=== PATIENT | male | born 1950 | race American Indian/Alaskan Native ===

== ENCOUNTER 2021-09-12 14:08 | Outpatient (CLI) | payer MEDICARE | END 2021-09-12 14:09 | disposition home or self-care (01) | LOC: CSHRAD 14:08 | PROVIDERS: ATTEND Family Medicine | DX: R05.3 Chronic cough (principal) | CPT/HCPCS: 71046 ==

== ENCOUNTER 2022-05-30 15:46 | Outpatient (CLI) | payer MEDICARE ==
[2022-05-30 16:29] LABS: Mean Corpuscular HGB CONC 33.9 g/dL (32.0-36.0); Mean Corpuscular Hemoglobin 32.1 pg (27.0-33.0); Mean Corpuscular Volume 94.7 fl (81.2-95.1); Mean Platelet Volume 11.7 fl (7.4-10.4); Platelet Count 230 10x3/uL (150-450); RBC Distribution Width 13.5 % (11.5-14.5); Red Blood Cell (RBC) Count 3.74 10x6/uL (4.32-5.72); White Blood Cell (WBC) Count 6.3 10x3/uL (3.5-10.5)
[2022-05-30 16:48] LABS: PTT 25.9 sec (22.0-33.0); Prothrombin Time 11.1 sec (9.5-12.1)
[2022-05-30 16:52] LABS: Anion Gap 15 mmol/L (10-20); BUN (Urea Nitrogen) 28 mg/dL (8.4-25.7); Calc. Creatinine Clearance 0 mL/min (70-130); Calcium 10.1 mg/dL (7.8-10.44); Carbon Dioxide 21 mmol/L (23-31); Chloride 108 mmol/L (98-107); Estimated GFR 34; Glucose 151 mg/dL (83-110); Potassium 4.9 mmol/L (3.5-5.1); Sodium 139 mmol/L (136-145)
== END 2022-05-30 15:47 | disposition home or self-care (01) ==
LOC: CSHLAB 15:46
PROVIDERS: ATTEND Specialist
DX: Z01.818 Encounter for other preprocedural examination (principal); Z20.822 Contact with and (suspected) exposure to COVID-19
CPT/HCPCS: 80048; 85027; 85610; 85730; 87811

== ENCOUNTER 2022-06-04 06:17 | Observation (INO) | payer MEDICARE ==
[2022-06-04] MEDS ORDERED: Acetylcysteine 800 MG/4 ML VIAL ONE (06:54)
[2022-06-04 07:15] VITALS: TEMP 97
[2022-06-04] MEDS ORDERED: Nitroglycerin 50 MG/250 ML BOT 250 ML ONE (07:23)
[2022-06-04] MEDS ORDERED: Heparin 10,000 UNITS/ 10 ML VIAL ONE (07:24)
[2022-06-04] MEDS ORDERED: Lidocaine 1% 20 ML MDV ONE (07:34)
[2022-06-04] MEDS ORDERED: Verapamil 5 MG/2 ML VIAL ONE (07:35)
[2022-06-04] MEDS ORDERED: Adenosine 6 MG/2 ML VIAL ONE (07:35)
[2022-06-04] MEDS ORDERED: Bivalirudin 250 MG VIAL ONE (07:36)
[2022-06-04] MEDS ORDERED: Fentanyl 100 MCG/2 ML VIAL ONE (08:51)
[2022-06-04] MEDS ORDERED: Midazolam HCl 2 mg/2 ml Vial ONE (08:51)
[2022-06-04] MEDS ORDERED: diphenhydrAMINE 50 MG/ML VIAL ONE (09:08)
[2022-06-04] MEDS ORDERED: Calcium Carbonate 500 MG ChewTAB PO PRN (10:18)
[2022-06-04] MEDS ORDERED: Ondansetron ODT 4 MG TAB PO PRN (10:18)
[2022-06-04] MEDS ORDERED: Senokot S 8.6-50 MG TAB PO PRN (10:18)
[2022-06-04] MEDS ORDERED: Loperamide HCl 2 MG CAP PO PRN (10:18)
[2022-06-04] MEDS ORDERED: HYDROcodone/Acetaminophen 7.5/325 mg Tablet PO PRN (10:18)
[2022-06-04] MEDS ORDERED: Acetaminophen 325 MG TAB PO PRN (10:18)
[2022-06-04] MEDS ORDERED: HYDROcodone/Acetaminophen 5/325 mg Tablet PO PRN (10:18)
[2022-06-04] MEDS ORDERED: Nitroglycerin 0.4 MG TAB (25 Tab Bottle) SL PRN (10:23)
[2022-06-04] MEDS ORDERED: Sodium Chloride 0.9% 200 ML IV PRN (10:23)
[2022-06-04] MEDS ORDERED: Acetaminophen/Codeine 30-300mg Tablet PO PRN ×2 (10:23)
[2022-06-04] MEDS ORDERED: Sodium Chloride 0.9% 1,000 ML IV SCH (10:30)
[2022-06-04] MEDS ORDERED: Atropine Sulfate 0.4 mg/1 ml Vial ONE (11:45)
[2022-06-04] MEDS ORDERED: Ondansetron PF 4 MG/2 ML Vial ONE (11:45)
[2022-06-04] MEDS ORDERED: Iopamidol 300 61% 100 ML VIAL FS ONE (13:47)
[2022-06-04 14:13] VITALS: BMI 24.2
[2022-06-04 15:24] VITALS: BP 126/63
== END 2022-06-04 18:28 | disposition home or self-care (01) ==
LOC: CSHCCL 06:17 → CSHTELE 10:52
PROVIDERS: ADMIT Specialist; ATTEND Specialist
PROC: 4A023N7 Measurement of Cardiac Sampling and Pressure, Left Heart, Percutaneous Approach (ICD-10-PCS; principal; 2022-06-04)
PROC: B201YZZ Plain Radiography of Multiple Coronary Arteries using Other Contrast (ICD-10-PCS; 2022-06-04)
DX: I25.10 Atherosclerotic heart disease of native coronary artery without angina pectoris (principal); I25.82 Chronic total occlusion of coronary artery; I65.23 Occlusion and stenosis of bilateral carotid arteries; I10 Essential (primary) hypertension; E78.2 Mixed hyperlipidemia; I70.202 Unspecified atherosclerosis of native arteries of extremities, left leg; E11.9 Type 2 diabetes mellitus without complications; Z79.82 Long term (current) use of aspirin; Z79.899 Other long term (current) drug therapy; Z88.0 Allergy status to penicillin; Z88.5 Allergy status to narcotic agent
CPT/HCPCS: 85347 ×2; 92920; 93459; C1769; C1874; C1887; C1894; C9600; 92928; 99152; 99153; J0153; J0461; J0583; J1200; J1644; J2250; J2405; J3010; J7050; Q9967

== ENCOUNTER 2023-01-22 10:09 | Outpatient (CLI) | payer OTHER ==
[2023-01-22 11:02] LABS: Hemoglobin 12.7 g/dL (13.5-17.5); Mean Corpuscular HGB CONC 33.8 g/dL (32.0-36.0); Mean Corpuscular Volume 97.7 fl (81.2-95.1); Mean Platelet Volume 11.5 fl (7.4-10.4); Platelet Count 213 10x3/uL (150-450); RBC Distribution Width 12.5 % (11.5-14.5); Red Blood Cell (RBC) Count 3.85 10x6/uL (4.32-5.72); White Blood Cell (WBC) Count 4.7 10x3/uL (3.5-10.5)
[2023-01-22 11:09] LABS: Anion Gap 15 mmol/L (10-20); BUN (Urea Nitrogen) 25 mg/dL (8.4-25.7); Calc. Creatinine Clearance 0 mL/min (70-130); Carbon Dioxide 24 mmol/L (23-31); Chloride 107 mmol/L (98-107); Estimated GFR 44; Glucose 150 mg/dL (83-110); Potassium 4.5 mmol/L (3.5-5.1); Sodium 141 mmol/L (136-145)
[2023-01-22 11:10] LABS: PTT 26.2 sec (22.0-33.0)
== END 2023-01-22 10:10 | disposition home or self-care (01) ==
LOC: CSHLAB 10:09
PROVIDERS: ATTEND Specialist
DX: Z01.818 Encounter for other preprocedural examination (principal)
CPT/HCPCS: 80048; 85027; 85610; 85730; 93005; 93010

== ENCOUNTER 2023-01-23 08:30 | Day surgery (SDC) | payer OTHER ==
[~2023-01-23 08:30] MED LIST: Adenosine 6 MG/2 ML VIAL ONE; Heparin 10,000 UNITS/ 10 ML VIAL ONE; Lidocaine 1% (PF) 30 ML VIAL ONE; Lidocaine 1% MPF 2 ML VIAL ONE; Nitroglycerin 50 MG/250 ML BOT 0 ML ONE; Sodium Chloride 0.9% 1,000 ML ONE; Verapamil 5 MG/2 ML VIAL ONE
[2023-01-23] MEDS ORDERED: Acetylcysteine 800 MG/4 ML VIAL ONE (08:49)
[2023-01-23 09:11] VITALS: BP 135/66; TEMP 97.8
[2023-01-23] MEDS ORDERED: Fentanyl 100 MCG/2 ML VIAL ONE ×2 (09:53→12:47)
[2023-01-23] MEDS ORDERED: Midazolam HCl 2 mg/2 ml Vial ONE (09:54)
[2023-01-23] MEDS ORDERED: Iopamidol 300 61% 100 ML VIAL FS ONE (10:24)
[2023-01-23] MEDS ORDERED: Heparin 10,000 UNITS/ 10 ML VIAL ONE (10:27)
[2023-01-23] MEDS ORDERED: Atropine Sulfate 0.4 mg/1 ml Vial ONE (12:51)
[2023-01-23] MEDS ORDERED: Ondansetron PF 4 MG/2 ML Vial ONE (12:53)
[2023-01-23] MEDS ORDERED: Phenylephrine 40 MG/NS 250 ML 0 ML ONE (13:05)
[2023-01-23] MEDS ORDERED: PHENYLEPHRINE-NS 100 MCG/ML 10 ML SYRINGE ONE (13:06)
== END 2023-01-23 18:50 | disposition home or self-care (01) ==
LOC: CSHSDC 08:30
PROVIDERS: ATTEND Specialist
DX: R06.02 Shortness of breath (principal); I25.110 Atherosclerotic heart disease of native coronary artery with unstable angina pectoris; R94.39 Abnormal result of other cardiovascular function study; Z95.5 Presence of coronary angioplasty implant and graft
CPT/HCPCS: 85347 ×2; 92920; 93459; C1725; C1760; C1769; C1874; C1876; C1887 ×4; C1894; C9604; 92937; 99152; 99153; J0153; J0461; J1644; J2001; J2250; J2405; J3010; J7050; Q9967

== ENCOUNTER 2023-02-10 18:08 | Emergency (ER) | payer OTHER ==
[2023-02-10 19:05] LABS: #Monocytes 1.1 10x3/uL (0.0-1.1); #Neutrophils 6.9 10x3/uL (1.5-8.4); %Basophils 0.1 % (0.0-2.0); %Eosinophils 0.4 % (0.0-6.0); %Lymphocytes 13.9 % (18.0-47.0); %Monocytes 11.2 % (0.0-10.0); %Neutrophils 74.1 % (40.0-75.0); Hemoglobin 11.9 g/dL (13.5-17.5); Mean Corpuscular HGB CONC 34.3 g/dL (32.0-36.0); Mean Corpuscular Hemoglobin 32.7 pg (27.0-33.0); Mean Corpuscular Volume 95.3 fl (81.2-95.1); Mean Platelet Volume 11.4 fl (7.4-10.4); Platelet Count 216 10x3/uL (150-450); RBC Distribution Width 12.5 % (11.5-14.5); Red Blood Cell (RBC) Count 3.64 10x6/uL (4.32-5.72); White Blood Cell (WBC) Count 9.4 10x3/uL (3.5-10.5)
[2023-02-10 19:23] LABS: ALT (SGPT) 18 U/L (8-55); AST (SGOT) 26 U/L (5-34); Albumin 4.5 g/dL (3.4-4.8); Alkaline Phosphatase 53 U/L (40-110); Anion Gap 16 mmol/L (10-20); BUN (Urea Nitrogen) 16 mg/dL (8.4-25.7); Bilirubin, Total 0.4 mg/dL (0.2-1.2); Calc. Creatinine Clearance 0 mL/min (70-130); Calcium 9.6 mg/dL (7.8-10.44); Carbon Dioxide 21 mmol/L (23-31); Chloride 102 mmol/L (98-107); Estimated GFR 49; Globulin 3.3 g/dL (2.4-3.5); Glucose 139 mg/dL (83-110); Potassium 4.4 mmol/L (3.5-5.1); Protein, Total 7.8 g/dL (5.8-8.1); Sodium 135 mmol/L (136-145)
== END 2023-02-10 20:37 | disposition home or self-care (01) ==
LOC: CSHERS 18:08
DX: U07.1 COVID-19 (principal); E11.9 Type 2 diabetes mellitus without complications; I10 Essential (primary) hypertension
CPT/HCPCS: 71045; 80053; 83605; 84484; 85025; 93005

== ENCOUNTER 2023-05-24 17:45 | Observation (INO) | payer OTHER ==
[2023-05-24 18:35] LABS: #Eosinphils 0.1 10x3/uL (0.0-0.5); #Monocytes 0.8 10x3/uL (0.0-1.1); #Neutrophils 3.1 10x3/uL (1.5-8.4); %Basophils 0.3 % (0.0-2.0); %Eosinophils 1.5 % (0.0-6.0); %Lymphocytes 37.6 % (18.0-47.0); %Monocytes 12.1 % (0.0-10.0); %Neutrophils 48.2 % (40.0-75.0); Hematocrit 35.9 % (38.8-50.0); Hemoglobin 12.2 g/dL (13.5-17.5); Mean Corpuscular Hemoglobin 32.4 pg (27.0-33.0); Mean Corpuscular Volume 95.5 fl (81.2-95.1); Mean Platelet Volume 11.6 fl (7.4-10.4); Platelet Count 215 10x3/uL (150-450); RBC Distribution Width 13.1 % (11.5-14.5); Red Blood Cell (RBC) Count 3.76 10x6/uL (4.32-5.72); White Blood Cell (WBC) Count 6.5 10x3/uL (3.5-10.5)
[2023-05-24 18:47] LABS: ALT (SGPT) 23 U/L (8-55); AST (SGOT) 21 U/L (5-34); Albumin 4.5 g/dL (3.4-4.8); Alkaline Phosphatase 72 U/L (40-110); Anion Gap 16 mmol/L (10-20); BUN (Urea Nitrogen) 26 mg/dL (8.4-25.7); Bilirubin, Total 0.3 mg/dL (0.2-1.2); CK (CPK) 99 U/L (30-200); Calc. Creatinine Clearance 0 mL/min (70-130); Calcium 9.8 mg/dL (7.8-10.44); Carbon Dioxide 22 mmol/L (23-31); Chloride 105 mmol/L (98-107); Estimated GFR 38; Globulin 3.2 g/dL (2.4-3.5); Glucose 155 mg/dL (83-110); Lipase 85 U/L (8-78); Potassium 3.9 mmol/L (3.5-5.1); Protein, Total 7.7 g/dL (5.8-8.1); Sodium 139 mmol/L (136-145)
[2023-05-24] MEDS ORDERED: Nitroglycerin 2% Ointment 1 INCH/1 GM Packet ONE (18:47)
[2023-05-24] MEDS ORDERED: Morphine 4 MG/ML VIAL ONE (19:14)
[2023-05-24] MEDS ORDERED: Ondansetron PF 4 MG/2 ML Vial ONE (19:15)
[2023-05-24] MEDS ORDERED: Aspirin Chewable 81 MG TAB ONE (19:30)
[2023-05-24] MEDS ORDERED: Amlodipine 5 MG TAB ONE (19:46)
[2023-05-24] MEDS ORDERED: Potassium Chloride 20 MEQ TAB ONE (19:46)
[2023-05-24] MEDS ORDERED: Ondansetron PF 4 MG/2 ML Vial IVP PRN (20:23)
[2023-05-24] MEDS ORDERED: Ondansetron ODT 4 MG TAB PO PRN (20:23)
[2023-05-24] MEDS ORDERED: Acetaminophen 650 MG Suppository PR PRN (20:23)
[2023-05-24] MEDS ORDERED: Acetaminophen 325 MG TAB PO PRN (20:23)
[2023-05-24] MEDS ORDERED: Nitroglycerin 0.4 MG TAB (25 Tab Bottle) SL PRN (20:25)
[2023-05-24] MEDS ORDERED: Glucagon 1 MG/ML KIT IM PRN (20:32)
[2023-05-24] MEDS ORDERED: Dextrose 5% in Water 1,000 ML IV PRN (20:32)
[2023-05-24] MEDS ORDERED: HumaLOG 300 UNITS/3 ML VIAL SC PRN ×2 (20:32)
[2023-05-24] MEDS ORDERED: Dextrose 50% Abboject 50 ML SYRINGE SLOW IVP PRN (20:32)
[2023-05-24 22:16] VITALS: BMI 24.0
[2023-05-24] MEDS ORDERED: Metoprolol Tartrate 25 MG TAB PO SCH (22:30)
[2023-05-25 00:23] LABS: Troponin I 0.033 ng/mL (< 0.028)
[2023-05-25 04:40] LABS: #Eosinphils 0.1 10x3/uL (0.0-0.5); #Monocytes 0.7 10x3/uL (0.0-1.1); #Neutrophils 2.2 10x3/uL (1.5-8.4); %Basophils 0.2 % (0.0-2.0); %Eosinophils 2.3 % (0.0-6.0); %Lymphocytes 42.7 % (18.0-47.0); %Monocytes 13.6 % (0.0-10.0); Hematocrit 36.8 % (38.8-50.0); Hemoglobin 12.3 g/dL (13.5-17.5); Mean Corpuscular HGB CONC 33.4 g/dL (32.0-36.0); Mean Corpuscular Hemoglobin 31.6 pg (27.0-33.0); Mean Corpuscular Volume 94.6 fl (81.2-95.1); Mean Platelet Volume 11.6 fl (7.4-10.4); Platelet Count 223 10x3/uL (150-450); Red Blood Cell (RBC) Count 3.89 10x6/uL (4.32-5.72); White Blood Cell (WBC) Count 5.3 10x3/uL (3.5-10.5)
[2023-05-25 04:42] LABS: Anion Gap 14 mmol/L (10-20); BUN (Urea Nitrogen) 19 mg/dL (8.4-25.7); Calc. Creatinine Clearance 50 mL/min (70-130); Calcium 9.3 mg/dL (7.8-10.44); Carbon Dioxide 22 mmol/L (23-31); Chloride 106 mmol/L (98-107); Estimated GFR 53; Glucose 119 mg/dL (83-110); Potassium 4.1 mmol/L (3.5-5.1); Sodium 138 mmol/L (136-145)
[2023-05-25 04:48] LABS: Troponin I 0.046 ng/mL (< 0.028)
[2023-05-25] MEDS ORDERED: Aspirin Chewable 81 MG TAB PO SCH (09:00)
[2023-05-25] MEDS ORDERED: Prasugrel 10 MG TAB PO SCH (09:30)
[2023-05-25 16:43] VITALS: BP 135/67; TEMP 97.8
[2023-05-26] MEDS ORDERED: Prasugrel 10 MG TAB PO SCH (09:00)
== END 2023-05-25 18:00 | disposition home or self-care (01) ==
LOC: CSHERS 17:45 → CSHTELE 20:25
PROVIDERS: ADMIT Student in an Organized Health Care Education/Training Program; ATTEND Internal Medicine
DX: R07.9 Chest pain, unspecified (principal); I25.10 Atherosclerotic heart disease of native coronary artery without angina pectoris; D64.9 Anemia, unspecified; N18.9 Chronic kidney disease, unspecified; E11.22 Type 2 diabetes mellitus with diabetic chronic kidney disease; I12.9 Hypertensive chronic kidney disease with stage 1 through stage 4 chronic kidney disease, or unspecified chronic kidney disease; Z88.5 Allergy status to narcotic agent; Z91.041 Radiographic dye allergy status; Z88.0 Allergy status to penicillin; Z95.810 Presence of automatic (implantable) cardiac defibrillator; Z91.040 Latex allergy status; Z79.890 Hormone replacement therapy; Z79.82 Long term (current) use of aspirin; Z79.899 Other long term (current) drug therapy
CPT/HCPCS: 71045; 80048; 80053; 82550; 82607; 82962 ×2; 83690; 83735; 83880; 84484 ×4; 85025 ×2; 93005; 93306; 96372 ×2; 99285; G0378 ×2; 36415; 36416; J1650; J1815; J2270; J2405

== ENCOUNTER 2024-10-21 09:07 | Outpatient (CLI) | payer OTHER | END 2024-10-21 09:08 | disposition home or self-care (01) | LOC: CSHULT 09:07 | PROVIDERS: ATTEND Family Medicine | DX: Z13.6 Encounter for screening for cardiovascular disorders (principal) | CPT/HCPCS: 76706 ==

== ENCOUNTER 2025-06-09 06:07 | Observation (INO) | payer OTHER ==
[2025-06-09] MEDS ORDERED: Lidocaine 1% (PF) 30 ML VIAL ONE (06:49)
[2025-06-09] MEDS ORDERED: Heparin 10,000 UNITS/ 10 ML VIAL ONE (06:50)
[2025-06-09 07:30] VITALS: BMI 24.7
[2025-06-09 07:30] LABS: #Basophils Less than 0.03 10x3/uL (0.0-0.2); #Eosinophils Less than 0.03 10x3/uL (0.0-0.5); #Monocytes 0.06 10x3/uL (0.0-1.1); #Neutrophils 3.48 10x3/uL (1.5-8.4); %Basophils 0.0 % (0.0-2.0); %Eosinophils 0.0 % (0.0-6.0); %Lymphocytes 30.0 % (18.0-47.0); %Monocytes 1.2 % (0.0-10.0); %Neutrophils 68.6 % (40.0-75.0); Hematocrit 39.5 % (38.8-50.0); Hemoglobin 13.2 g/dL (13.5-17.5); Mean Corpuscular Hemoglobin 31.7 pg (27.0-33.0); Mean Corpuscular Volume 94.7 fL (81.2-95.1); Platelet Count 179 10x3/uL (150-450); Red Blood Cell (RBC) Count 4.17 10x6/uL (4.32-5.72); White Blood Cell (WBC) Count 5.07 10x3/uL (3.5-10.5)
[2025-06-09 07:31] VITALS: TEMP 97.9
[2025-06-09 07:40] LABS: INR-International Normal Ratio 1.1; PTT 26.9 sec (22.0-33.0); Prothrombin Time 11.8 sec (9.5-12.1)
[2025-06-09 07:44] LABS: Anion Gap 18 mmol/L (10-20); BUN (Urea Nitrogen) 24 mg/dL (8.4-25.7); Calc. Creatinine Clearance 43 mL/min (70-130); Calcium 9.3 mg/dL (7.8-10.44); Carbon Dioxide 21 mmol/L (23-31); Chloride 102 mmol/L (98-107); Glucose 235 mg/dL (83-110); Potassium 4.6 mmol/L (3.5-5.1); Sodium 136 mmol/L (136-145)
[2025-06-09] MEDS ORDERED: Nitroglycerin 50 MG/250 ML BOT 250 ML ONE (08:12)
[2025-06-09] MEDS ORDERED: PHENYLEPHRINE-NS 100 MCG/ML 10 ML SYRINGE ONE (08:16)
[2025-06-09] MEDS ORDERED: Ondansetron PF 4 MG/2 ML Vial ONE (08:17)
[2025-06-09] MEDS ORDERED: Adenosine 6 mg (2 mL) VIAL ONE (08:38)
[2025-06-09] MEDS ORDERED: hydrALAZINE 20 MG/ML VIAL ONE (09:22)
[2025-06-09] MEDS ORDERED: Iopamidol 300 61% 100 ML VIAL FS ONE (11:01)
[2025-06-09] MEDS ORDERED: Nitroglycerin 0.4 MG TAB (25 Tab Bottle) ONE (11:46)
[2025-06-09] MEDS: Nitroglycerin 0.4 MG TAB (25 Tab Bottle) SL PRN (12:35)
[2025-06-09] MEDS: Isosorbide Mononitrate 30 MG ER.TAB.S PO SCH (13:03)
[2025-06-09] MEDS: Metoprolol Succinate XL 50 MG ER.TAB PO SCH (13:03)
[2025-06-09] MEDS: Losartan 50 MG TAB PO SCH (13:03)
[2025-06-09] MEDS: PNEUMOC 20-VAL CONJ-DIP CRM/PF 0.5 ML SYRINGE IM ONE (13:08)
[2025-06-09] MEDS: ALPRAZolam 0.25 MG TAB PO SCH (15:07)
[2025-06-09 17:31] VITALS: BP 105/60
== END 2025-06-09 17:29 | disposition home or self-care (01) ==
LOC: CSHCCL 06:07 → CSHICU 11:42
PROVIDERS: ADMIT Specialist; ATTEND Specialist
PROC: 02703ZZ Dilation of Coronary Artery, One Artery, Percutaneous Approach (ICD-10-PCS; principal; 2025-06-09)
DX: I25.119 Atherosclerotic heart disease of native coronary artery with unspecified angina pectoris (principal); I25.118 Atherosclerotic heart disease of native coronary artery with other forms of angina pectoris; Z88.5 Allergy status to narcotic agent; Z91.041 Radiographic dye allergy status; Z91.040 Latex allergy status; Z88.2 Allergy status to sulfonamides
CPT/HCPCS: 71045; 80048; 85025; 85347 ×2; 85610; 85730; 92937; 92978; 93455; C1753; C1769; C1874; C1887 ×2; C1894; J0360; J1644; J2250; J3010; J7030; 99152; 99153; G0378; J0153; J0461; J0583; J2405; Q9967

== ENCOUNTER 2025-06-10 06:27 | Emergency (ER) | payer OTHER ==
[2025-06-10 09:39] LABS: Hematocrit 37.7 % (38.8-50.0); Hemoglobin 12.3 g/dL (13.5-17.5); Mean Corpuscular Hemoglobin 31.2 pg (27.0-33.0); Mean Corpuscular Volume 95.7 fL (81.2-95.1); Platelet Count 176 10x3/uL (150-450); Red Blood Cell (RBC) Count 3.94 10x6/uL (4.32-5.72); White Blood Cell (WBC) Count 7.01 10x3/uL (3.5-10.5)
[2025-06-10 09:47] LABS: INR-International Normal Ratio 1.0; PTT 24.8 sec (22.0-33.0); Prothrombin Time 11.3 sec (9.5-12.1)
[2025-06-10 09:50] LABS: ALT (SGPT) 18 U/L (Less than 45); AST (SGOT) 21 U/L (11-34); Albumin 3.9 g/dL (3.1-4.5); Alkaline Phosphatase 49 U/L (40-110); Anion Gap 13 mmol/L (10-20); BUN (Urea Nitrogen) 25 mg/dL (8.4-25.7); Bilirubin, Total 0.5 mg/dL (0.3-1.2); Calc. Creatinine Clearance 0 mL/min (70-130); Calcium 9.1 mg/dL (7.8-10.44); Carbon Dioxide 21 mmol/L (23-31); Chloride 106 mmol/L (98-107); Globulin 3.2 g/dL (2.4-3.5); Glucose 299 mg/dL (83-110); Potassium 4.0 mmol/L (3.5-5.1); Sodium 136 mmol/L (136-145)
[2025-06-10 09:56] LABS: MDiff Complete? YES; Platelet Adequacy Comment Platelets Normal; RBC Morphology Within Normal Limits
== END 2025-06-10 12:25 | disposition home or self-care (01) ==
LOC: CSHERS 06:27
DX: T81.718A Complication of other artery following a procedure, not elsewhere classified, initial encounter (principal); E11.9 Type 2 diabetes mellitus without complications; I10 Essential (primary) hypertension; E78.00 Pure hypercholesterolemia, unspecified; E03.9 Hypothyroidism, unspecified; Z79.899 Other long term (current) drug therapy; Z79.890 Hormone replacement therapy; Z79.84 Long term (current) use of oral hypoglycemic drugs
CPT/HCPCS: 36415; 80053; 85025; 85610; 85730; 93923

== ENCOUNTER 2025-10-20 09:35 | Outpatient (CLI) | payer OTHER | END 2025-10-20 09:36 | disposition home or self-care (01) | LOC: CSHCT 09:35 | PROVIDERS: ATTEND Specialist | DX: J32.8 Other chronic sinusitis (principal) ==